=== PATIENT | male | born 1990 | race Two or more races ===

== ENCOUNTER 2022-07-27 22:14 | Emergency (ER) | payer SELFPAY ==
[~2022-07-27] VITALS: Ht 165.1 cm; Wt 68.0 kg
[2022-07-27 23:50] VITALS: BP 120/68
== END 2022-07-27 23:51 | disposition home or self-care (01) ==
LOC: ER 22:14
DX: R68.89 Other general symptoms and signs (principal); Z00.00 Encounter for general adult medical examination without abnormal findings
CPT/HCPCS: 99283